=== PATIENT | female | born 1975 | race Caucasian/White ===

== ENCOUNTER 2022-11-06 14:45 | Emergency (ER) | payer OTHER ==
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
[2022-11-06 16:09] VITALS: BP 128/56
[2022-11-06] MEDS ORDERED: TORAdol 30 mg Injection IM ONE (16:17)
[2022-11-06 16:19] VITALS: PULSE 90
[2022-11-06 16:21] VITALS: O2SAT 98
[2022-11-06] MEDS ORDERED: TORAdol 30 mg Injection ONE (16:21)
--- NOTE | 2022-11-06 20:53 | XRAY ---
Indication: Laceration Comparison: None 2 view right elbow demonstrates anterior soft tissue swelling/laceration with overlying bandage material. No other bony, articular, or soft tissue abnormalities.
== END 2022-11-06 16:55 | disposition short-term general hospital (02) ==
LOC: ED 14:45
DX: S51.011A Laceration without foreign body of right elbow, initial encounter (principal); S61.213A Laceration without foreign body of left middle finger without damage to nail, initial encounter; V86.95XA Unspecified occupant of 3- or 4- wheeled all-terrain vehicle (ATV) injured in nontraffic accident, initial encounter; Z59.82 Transportation insecurity
CPT/HCPCS: 73070; 96372; 99284; 99291; J1885